=== PATIENT | female | born 1960 | race Caucasian/White ===

== ENCOUNTER 2017-11-05 16:56 | Emergency (ER) | payer MEDICARE | END 2017-11-05 18:30 | disposition left against medical advice (07) | LOC: UCEAST 16:56 | DX: Z53.21 Procedure and treatment not carried out due to patient leaving prior to being seen by health care provider (principal) ==

== ENCOUNTER 2017-12-10 14:12 | Emergency (ER) | payer SELFPAY ==
[2017-12-10 15:26] LABS: ABS Basophils 0 10^3/ul (0-0.2); ABS Eosinophils 0 10^3/ul (0-0.6); ABS Lymphocytes 1.5 10^3/ul (1.0-4.8); ABS Monocytes 0.4 10^3/ul (0-0.8); ABS Neutrophils 5.6 10^3/ul (1.5-7.7); ABS Nucleated RBC 0 10^3/ul; Eosinophil % 0.3 % (0-6); Hematocrit 39 % (35-47); Hemoglobin 13.7 g/dl (12.0-16.0); Lymphocyte % 20.3 % (25-47); Mean Corpuscular HGB Conc 35 g/dl (31-36); Mean Corpuscular Hemoglobin 31 pg (27-31); Mean Corpuscular Volume 88 fL (80-97); Mean Platelet Volume 8 um3 (7.4-10.4); Nucleated Red Blood Cells % 0; Platelet Count 308 10^3/ul (150-450); Red Blood Count 4.48 10^6/ul (4.0-5.4); Red Cell Distribution Width 13 % (10.5-15); White Blood Count 7.5 10^3/ul (3.5-10.8)
[2017-12-10] MEDS ORDERED: LORazepam TAB(*) 1 MG PO ONE (15:32)
[2017-12-10 15:45] LABS: EGFR Non-African American 80.2 (>60)
--- NOTE | 2017-12-10 15:52 | RAD ---
HISTORY: Palpitation COMPARISONS: May 28, 2005 imaging report VIEWS: 4: Frontal dual-energy and lateral views of the chest. FINDINGS: CARDIOMEDIASTINAL SILHOUETTE: The cardiomediastinal silhouette is normal. MICHELLE: The michelle are normal. PLEURA: The costophrenic angles are sharp. No pleural abnormalities are noted. LUNG PARENCHYMA: The lungs are clear. ABDOMEN: The upper abdomen is clear. There is no subphrenic gas. BONES AND SOFT TISSUES: No bone or soft tissue abnormalities are noted. OTHER: None. IMPRESSION: NO ACTIVE CARDIOPULMONARY DISEASE.
--- NOTE | 2017-12-10 16:23 | ED ---
HPI Chest Pain - HPI Summary HPI Summary: Patient is an otherwise healthy 57-year-old female presenting to the ED with chief complaint of left shoulder pain, feeling her heart is beating fast, bilateral jaw pain. She admits this may be anxiety, but has never had a strong history of such. Denies any cardiac history. She takes no medications. Symptoms have been intermittent times several weeks and worse at bedtime. She is also experiencing intermittent hot flashes, but denies any fevers, sweats, chills. Denies any feelings of irregular heartbeat or chest pressure. Denies any weakness, headache, visual changes. She appears to be anxious on arrival. Symptoms are aggravated by lying flat or going to bed, alleviated with nothing. Denies any recent travel, OCP use or smoking history. Denies any calf pain. Patient was adopted and family history is unknown. - History of Current Complaint Chief Complaint: EDDysrhythmPalp Time Seen by Provider: 12/10/17 14:50 Hx Obtained From: Patient Onset/Duration: Started Weeks Ago Timing: Constant Initial Severity: Moderate Current Severity: Moderate Pain Intensity: 0 Pain Scale Used: 0-10 Numeric Chest Pain Location: Mid Sternal Chest Pain Radiates: Yes Chest Pain Radiates To:: Shoulder, Jaw Character: Other: - Feelings of palpitations Aggravating Factor(s): Recumbent Position Alleviating Factor(s): Nothing Associated Signs and Symptoms: Positive: Anxiety, Recent Stress, Palpitations. Negative: Chest Pain, Vision Changes, Headaches, Numbness, Tingling, Weakness, Shortness of Breath, Lightheadedness, Diaphoresis, Nausea, Calf Pain/Swelling, Edema, URI - Risk Factors Pulmonary Embolism Risk Factors: Negative TAD Risk Factors: Negative AMI/ACS Risk Factors: Myocardial Infarction - Allergy/Home Medications Allergies/Adverse Reactions: Allergies Allergy/AdvReac Type Severity Reaction Status Date / Time MS Aspirin [Aspirin] Allergy Severe See Comment Verified 07/23/14 08:59 PMH/Surg Hx/FS Hx/Imm Hx Previously Healthy: Yes Endocrine/Hematology History: Denies: Hx Diabetes, Hx Thyroid Disease Cardiovascular History: Denies: Hx Hypertension Respiratory History: Denies: Hx Asthma, Hx Chronic Obstructive Pulmonary Disease (COPD) GI History: Denies: Hx Ulcer - Surgical History Surgery Procedure, Year, and Place: hysterrectomy - Immunization History Hx Pertussis Vaccination: No Immunizations Up to Date: Unable to Obtain/Confirm Infectious Disease History: No Infectious Disease History: Denies: Hx Clostridium Difficile, Hx Hepatitis, Hx Human Immunodeficiency Virus (HIV), Hx of Known/Suspected MRSA, Hx Shingles, Hx Tuberculosis, Traveled Outside the [place] in Last 30 Days - Social History Occupation: Employed Full-time Lives: With Family Alcohol Use: None Hx Substance Use: No Substance Use Type: Reports: None Hx Tobacco Use: Yes Smoking Status (MU): Former Smoker Type: Cigarettes Length of Time of Smoking/Using Tobacco: Quit 02/2014 Review of Systems Constitutional: Negative Negative: Fever, Chills, Fatigue, Skin Diaphoresis Eyes: Negative ENT: Negative Positive: Palpitations Negative: Shortness Of Breath, Cough Gastrointestinal: Negative Negative: Abdominal Pain, Vomiting, Diarrhea, Nausea Genitourinary: Negative Positive: no symptoms reported, see HPI Musculoskeletal: Negative Neurological: Negative Positive: Anxious All Other Systems Reviewed And Are Negative: Yes Physical Exam Triage Information Reviewed: Yes Vital Signs On Initial Exam: Initial Vitals Temp Pulse Resp BP Pulse Ox 98.8 F 82 20 151/74 100 12/10/17 14:28 12/10/17 14:28 12/10/17 14:28 12/10/17 14:28 12/10/17 14:28 Vital Signs Reviewed: Yes Appearance: Positive: Well-Appearing, Well-Nourished Skin: Positive: Warm, Skin Color Reflects Adequate Perfusion Head/Face: Positive: Normal Head/Face Inspection Eyes: Positive: EOMI, KEERTHI, Conjunctiva Clear Neck: Positive: Supple, No Lymphadenopathy Respiratory/Lung Sounds: Positive: Clear to Auscultation, Breath Sounds Present Cardiovascular: Positive: Normal, RRR, Pulses are Symmetrical in both Upper and Lower Extremities Musculoskeletal: Positive: Normal, Strength/ROM Intact Neurological: Positive: Speech Normal Psychiatric: Positive: Normal, Affect/Mood Appropriate AVPU Assessment: Alert Diagnostics - Vital Signs Vital Signs Temp Pulse Resp BP Pulse Ox 12/10/17 14:28 98.8 F 82 20 151/74 100 - Laboratory Lab Results: Lab Results 12/10/17 12/10/17 12/10/17 Range/Units 15:12 15:12 15:12 WBC 7.5 (3.5-10.8) 10^3/ul RBC 4.48 (4.0-5.4) 10^6/ul Hgb 13.7 (12.0-16.0) g/dl Hct 39 (35-47) % MCV 88 (80-97) fL MCH 31 (27-31) pg MCHC 35 (31-36) g/dl RDW 13 (10.5-15) % Plt Count 308 (150-450) 10^3/ul MPV 8 (7.4-10.4) um3 Neut % (Auto) 73.8 (38-83) % Lymph % (Auto) 20.3 L (25-47) % [place] % (Auto) 5.0 (0-7) % Eos % (Auto) 0.3 (0-6) % Baso % (Auto) 0.6 (0-2) % Absolute Neuts (auto) 5.6 (1.5-7.7) 10^3/ul Absolute Lymphs (auto) 1.5 (1.0-4.8) 10^3/ul Absolute Monos (auto) 0.4 (0-0.8) 10^3/ul Absolute Eos (auto) 0 (0-0.6) 10^3/ul Absolute Basos (auto) 0 (0-0.2) 10^3/ul Absolute Nucleated RBC 0 10^3/ul Nucleated RBC % 0 Sodium 139 (133-145) mmol/L Potassium 3.4 L (3.5-5.0) mmol/L Chloride 105 (101-111) mmol/L Carbon Dioxide 26 (22-32) mmol/L Anion Gap 8 (2-11) mmol/L BUN 10 (6-24) mg/dL Creatinine 0.75 (0.51-0.95) mg/dL Est GFR ( Amer) 103.2 (>60) Est GFR (Non-Af Amer) 80.2 (>60) BUN/Creatinine Ratio 13.3 (8-20) Glucose 105 H (70-100) mg/dL Lactic Acid 2.1 H* (0.5-2.0) mmol/L Calcium 11.1 H (8.6-10.3) mg/dL Magnesium 2.0 (1.9-2.7) mg/dL Total Bilirubin 0.40 (0.2-1.0) mg/dL AST 20 (13-39) U/L ALT 31 (7-52) U/L Alkaline Phosphatase 49 (34-104) U/L Total Creatine Kinase 92 (10-223) U/L Troponin I 0.01 (<0.04) ng/mL Total Protein 7.2 (6.4-8.9) g/dL Albumin 4.6 (3.2-5.2) g/dL Globulin 2.6 (2-4) g/dL Albumin/Globulin Ratio 1.8 (1-3) TSH 1.46 (0.34-5.60) mcIU/mL Result Diagrams: 12/10/17 15:12 12/10/17 15:12 Lab Statement: Any lab studies that have been ordered have been reviewed, and results considered in the medical decision making process. Chest Pain Course/Dx - Course Course Of Treatment: During the course of treatment, the patient's evaluated for feelings of palpitations radiating into the left shoulder and bilateral jaw pain she endorses clenching her jaw more frequently lately as she has had extra stressors in her life. She also has a history of posterior left shoulder pain which has been present for several months which she is following through PT. The symptoms of palpitations and hot flashes are new and worse at bedtime. Labs obtained which show a troponin of 0.01, chest x-ray shows no active acute cardiopulmonary disease, and other labs within normal limits, including TSH. Patient is given these results. I have offered a trial of Ativan to assess for improvement, patient is okay with this plan. Ativan improved symptoms significantly. Second troponin obtained as patient was still in the ED while awaiting suspension of Ativan. Second troponin 0.01. EKG shows normal sinus rhythm. Patient is still referred to cardiology and I have given her a trial of Ativan for any breakthrough anxiety symptoms. However, I have discussed with her the possibility for every day therapy and to discuss this with her PCP. I have also given her the name of a physician who is practicing in [employer] and I have advised her to follow-up with her on this. - Chest Pain Differential Diagnosis/HQI/PQRI: Angina, Chest Wall - Diagnoses Provider Diagnoses: Anxiety Discharge - Discharge Plan Condition: Stable Disposition: HOME Prescriptions: LORazepam TAB(*) [Ativan 1 MG TAB (*)] 1 mg PO Q8H PRN #20 tab MDD 3 PRN Reason: Anxiety Patient Education Materials: Anxiety (ED) Referrals: Catalino Miles DO [Medical Doctor] - Dorita Boss MD [Primary Care Provider] - Additional Instructions: Dr. Irais Cook [facility] [address] [place] [address] [phone] Please follow up with Dr. Cook. Call for Appt. Please also follow up with Dr. Miles (cardiology) for further testing Ativan 1mg up to three times daily for breakthrough anxiety However, follow up with your PCP if symptoms continue for a more long-term medication.
[2017-12-10 18:42] VITALS: BP 124/78
== END 2017-12-10 18:41 | disposition home or self-care (01) ==
LOC: ED 14:12
DX: F41.9 Anxiety disorder, unspecified (principal); R00.2 Palpitations; M25.512 Pain in left shoulder; R68.84 Jaw pain; Z88.6 Allergy status to analgesic agent; Z87.891 Personal history of nicotine dependence
CPT/HCPCS: 36415; 71046; 80053; 82550; 83605; 83735; 84443; 84484; 85025; 93005; 99282; A9270-GY